=== PATIENT | female | born 1940 | race Caucasian/White ===

== ENCOUNTER → 2018-12-26 | Outpatient (REF) | payer MEDICARE ==
[~2018-12-26] MED LIST: ASPIRIN 8181 MG PO; AUGMENTIN875TAB PO; AZOPT1 % OP; AZOPT1 % OU; BL POTASSIUM99 MG PO; FLUARIX QUADRIV1 INJ IM; FLUTICASONE50 MCG; FOLIC ACID400 MC1 PO; LEVOTHYROXIN50 MC1 PO; LISINOP/HCTZ1 TA1 PO; LORATADINE D PO; LUMIGAN0.01 % OP; MULTI 501 PO; PREVNAR 13 IM; SYSTANE OP
[2018-12-26 11:25] LABS: HEMATOCRIT 46.3 % (37.0-47.0); HEMOGLOBIN 15.2 g/dl (12.0-16.0); IMMATURE GRANULOCYTES 0.4 % (0.0-5.0); MEAN CELL VOLUME 92.4 fL CALC (80.0-100.0); MEAN CORPUSCULAR HGB 30.3 pG CALC (26.0-32.0); MEAN CORPUSCULAR HGB CONC 32.8 g/L CALC (32.0-36.0); NEUT# 5.68 thou/uL (2.00-7.15); RED BLOOD COUNT 5.01 mill/uL (4.20-5.60); RED CELL DISTRI WIDTH 13.9 % (11.5-15.5)
[2018-12-26 12:27] LABS: ALBUMIN 4.4 g/dL (3.2-5.0); ALKALINE PHOSPHATASE 77 u/l (38-126); ANION GAP 15 (6-22 (CALC)); BILIRUBIN, TOTAL 0.6 mg/dL (0.0-1.4); BUN 16 mg/dL (8-23); BUN/CREATININE RATIO 23 (12-20 (CALC)); CALCULATED LDLCHOLESTEROL 91 mg/dL (62-129 (CALC)); CARBON DIOXIDE 27 mmol/l (22-30); CHLORIDE 100 mmol/l (95-108); CREATININE 0.7 mg/dL (0.5-1.0); GFR > 60 ML/MIN (>=60 (CALC)); GFR FOR AFR.AMER. > 60 ML/MIN (>=60 (CALC)); HDL CHOLESTEROL 62 mg/dL (>=40); POTASSIUM 4.4 mmol/l (3.5-5.1); SGOT/AST 23 u/l (9-36); SODIUM 138 mmol/l (137-146); TOTAL CHOLESTEROL 187 mg/dl (0-199); TRIGLYCERIDES REFLEX TO dLDL 171 mg/dl (30-149); VLDL CHOLESTROL 34 mg/dl (0-48 (CALC))
[2018-12-26 12:57] LABS: TSH, 3RD GENERATION 2.48 uIU/mL (0.47 - 4.68)
== END | disposition home or self-care (01) ==
LOC: LAB 10:01
PROVIDERS: ATTEND Internal Medicine Geriatric Medicine
DX: E03.9 Hypothyroidism, unspecified (principal); I10 Essential (primary) hypertension

== ENCOUNTER 2020-05-19 10:46 | Inpatient (IN) | payer MEDICARE ==
[~2020-05-19] VITALS: Ht 165.1 cm; Wt 73.0 kg
--- NOTE | 2020-05-19 10:58 | NUR ---
PT TO ROOM VIA OWN WHEELCHAIR FOR BEDSIDE TRIAGE.
--- NOTE | 2020-05-19 11:30 | NUR ---
PATIENT MEDICATED FOR 6/10 DUFFUSE PAIN TO ABD. ABD DISTENDED, TENDER TO PALPATION. BS HYPOACTIVE. PATIENT AND HUSABDN UPDATED ON PLAN OF CARE AND WAIT TIME. CALL FERNANDEZ WITHIN REACH.
--- NOTE | 2020-05-19 12:00 | NUR ---
PATIENT NOT TOLERATING PURE WICK. STRAIGHT CATH URINE SAMPLE OBTAINED, BLADDER EMPTIED, 450 MLS OF TRINITY COLORED URINE.
[2020-05-19 12:08] LABS: HEMATOCRIT 47.1 % (37.0-47.0); HEMOGLOBIN 15.3 g/dl (12.0-16.0); IMMATURE GRANULOCYTES 2.4 % (0.0-5.0); MEAN CELL VOLUME 89.2 fL CALC (80.0-100.0); MEAN CORPUSCULAR HGB CONC 32.5 g/dL CAL (32.0-36.0); NEUT# 20.42 thou/uL (2.00-7.15); RED BLOOD COUNT 5.28 mill/uL (4.20-5.60); RED CELL DISTRI WIDTH 13.8 % (11.5-15.5)
[2020-05-19 12:15] LABS: ALBUMIN 3.8 g/dL (3.2-5.0); AMYLASE 70 u/l (30-110); BUN 67 mg/dL (8-23); BUN/CREATININE RATIO 42 (12-20 (CALC)); CREATININE 1.6 mg/dL (0.5-1.0); GFR 31 ML/MIN (>=60 (CALC)); GFR FOR AFR.AMER. 38 ML/MIN (>=60 (CALC)); LIPASE 36 u/l (23-300); POTASSIUM 3.7 mmol/l (3.5-5.1); TOTAL PROTEIN 7.6 g/dL (6.3-8.2)
[2020-05-19 12:19] LABS: ALKALINE PHOSPHATASE 147 u/l (38-126); ANION GAP 20 (6-22 (CALC)); BILIRUBIN, TOTAL 1.3 mg/dL (0.0-1.4); CARBON DIOXIDE 22 mmol/l (22-30); CHLORIDE 87 mmol/l (95-108); SGOT/AST 68 u/l (9-36); SODIUM 125 mmol/l (137-146)
--- NOTE | 2020-05-19 12:30 | NUR ---
PATIENT UNABLE TO RECONCILE MEDICATIONS AT THIS TIME. WILL BE CONTACTING PHYSICIAN TO SEND LIST.
[2020-05-19 12:49] LABS: URINE BILIRUBIN - DIPSTICK NEGATIVE (NEGATIVE); URINE BLOOD DIPSTICK NEGATIVE (NEGATIVE); URINE COLOR YELLOW; URINE GLUCOSE - DIPSTICK NEGATIVE (NEGATIVE); URINE KETONE TRACE mg/dL (NEGATIVE); URINE LEUK ESTERASE NEGATIVE (NEGATIVE); URINE NITRITE - DIPSTICK NEGATIVE (Negative); URINE PH 5.5 (4.5-8.0); URINE PROTEIN - DIPSTICK NEGATIVE (NEG-TRACE); URINE SPECIFIC GRAVITY <=1.005; URINE UROBILINOGEN - DIPSTICK 0.2 E.U./dL (0.2)
--- NOTE | 2020-05-19 13:15 | NUR ---
IV ABX INFUSING WITH NO DIFFICULTY. PT REPORTS ABD PAIN IS 2/10. CALL FERNANDEZ WITHIN REACH.
[2020-05-19] MEDS ORDERED: ASPIRIN ADULT L81 M2 PO (13:42)
[2020-05-19] MEDS ORDERED: LEVOTHYROXIN50 MCG PO (13:42)
[2020-05-19] MEDS ORDERED: MULTI VIT PO (13:42)
[2020-05-19] MEDS ORDERED: LISINOP/HCTZ1 TA1 PO (13:43)
[2020-05-19] MEDS ORDERED: LORATADINE10 M1 PO (13:45)
[2020-05-19] MEDS ORDERED: VITAMIN D320 MCG PO (13:46)
[2020-05-19] MEDS ORDERED: DORZOLAMIDE HCL2 % OU (13:47)
[2020-05-19] MEDS ORDERED: VYZULTA0.024 % OU (13:47)
--- NOTE | 2020-05-19 13:48 | NUR ---
PATIENTS REQUESTING MORE IV FLUIDS DUE TO HER EXTREME DEHYDRATION. AWARE THAT NO OTHER MEDICATIONS ARE ORDERED AT THIS TIME. CALL FERNANDEZ WITHIN REACH.
[2020-05-19 13:54] LABS: ACT PARTIAL THROMBO TIME 28.1 SECONDS (20.0-32.5); PROTHROMBIN TIME 10.1 SECONDS (9.0-12.5)
--- NOTE | 2020-05-19 14:45 | NUR ---
PATIENT RESTING IN STRETCHER AND REPOSITIONED FOR COMFORT.
--- NOTE | 2020-05-19 15:15 | NUR ---
PATIENT ASSISTED ON BED PAIN.
--- NOTE | 2020-05-19 16:25 | NUR ---
DR RAMOS AT BEDSIDE.
--- NOTE | 2020-05-19 16:29 | NUR ---
EMILIA BAEZ AT BEDSIDE.
--- NOTE | 2020-05-19 17:00 | NUR ---
PATIENT RESTING IN STRETCHER IN NAD. PT AND UPDATED ON PLAN OF CARE AND WAIT TIME. CALL FERNANDEZ WITHIN REACH.
--- NOTE | 2020-05-19 18:00 | NUR ---
PATIENT RESGIN IN STRETCHER. VSS. CALL FERNANDEZ WITHIN REACH.
--- NOTE | 2020-05-19 18:15 | NUR ---
REPORT CALLED TO OLIVE CRAVEN.
--- NOTE | 2020-05-19 18:34 | NUR ---
Admission Note Report Given to: OLIVE CRAVEN Transported by: Wheelchair X Stretcher Transported with: X Nurse Transporter X Patent IV O2 X Wheel Press Clerk Location: ICU X MS2 PATIENT TO ROOM 273 IN STABLE CONDITION. CARE RELINQUISHED TO OLIVE CRAVEN.
[2020-05-19 18:50] VITALS: BP 140/58
--- NOTE | 2020-05-19 19:25 | NUR ---
RECEIVED REPORT FROM OLIVE CRAVEN. PT. ARRIVED TO THE FLOOR @1836. PT. IS RESTING IN BED WITH AT BEDSIDE. IS ADDEMANT THAT PT. WILL ONLY TAKE HER OWN EYE GTTS AND NOT ONES PROVIDED BY HOSPITAL STAFF. EYE GTTS LEFT AT BEDSIDE TO ADMINISTER HERSELF SHE NORMALLY DOES AT HOME. PT. AND INSTRUCTED THAT WHEN PHARMACY GETS HERE TOMORROW THEY WILL NEED TO LABEL SO WE CAN SCAN THEM TO GIVE. PT. C/O LLQ ABD PAIN THAT WILL INTERMITTENTLY CROSS OVER TO THE RLQ AND BACK WELL; DENIES NEEDS FOR PAIN MEDS AT THIS TIME. ORIENTED TO CALL LIGHT, ROOM, AND POC; VERBALIZES UNDERSTANDING. CALLED LINING SCRUBBER FOR ZOSYN WE DO NOT HAVE IT IN OUR [facility]. PT. IS INSTRUCTED TO CALL FOR ALL OOB NEEDS. CALL LIGHT IS IN REACH.
--- NOTE | 2020-05-19 20:23 | NUR ---
PT ARRIVED TO THE FLOOR IN STRETCHER WITH AT SIDE. TRANSFERRED TO BED AND HOB ELEVATED WITH NO DISTRESS NOTED.
[2020-05-19 23:30] VITALS: BP 126/50
--- NOTE | 2020-05-19 23:44 | NUR ---
PT. ASSSISTED UP TO BSC AND BACK INTO BED. URINE STRAINED. CALL LIGHT IS IN REACH.
--- NOTE | 2020-05-19 23:49 | NUR ---
PT. REPORTS LOWER ABD PAIN AND BACK PAIN /10; MEDICATED WITH ORDERED PRN MORPHINE WILL REASSESS.
--- NOTE | 2020-05-20 02:30 | NUR ---
PT. PROVIDED WITH MOUTHSWABS FOR DRYNESS; DENIES NEEDS. CALL LIGHT IS IN REACH.
[2020-05-20 03:30] VITALS: BP 120/49
[2020-05-20 05:56] LABS: MEAN CELL VOLUME 89.2 fL CALC (80.0-100.0); MEAN CORPUSCULAR HGB 28.8 pG CALC (26.0-32.0); MEAN CORPUSCULAR HGB CONC 32.3 g/dL CAL (32.0-36.0); RED BLOOD COUNT 4.24 mill/uL (4.20-5.60); RED CELL DISTRI WIDTH 13.6 % (11.5-15.5)
--- NOTE | 2020-05-20 06:00 | NUR ---
PT. ASSISTED ON AND OFF OF BSC AND BACK INTO BED. ASSISTED TO REPOSITION IN BED. DENIES NEEDS. CALL LIGHT IS IN REACH.
[2020-05-20 06:06] LABS: HEMATOCRIT 37.8 % (37.0-47.0); HEMOGLOBIN 12.2 g/dl (12.0-16.0)
[2020-05-20 06:10] LABS: CREATININE 1.4 mg/dL (0.5-1.0); MAGNESIUM 2.5 mg/dL (1.6-2.3); POTASSIUM 3.1 mmol/l (3.5-5.1)
[2020-05-20 12:00] VITALS: BP 135/66
--- NOTE | 2020-05-20 15:10 | NUR ---
PT IS ALERT AND ORIENTED AND ABLE TO MAKE NEEDS KNOWN. SKIN WARM TO TOUCH. MEDICATIONS GIVEN AND TOLERATED WELL. PT HAS CT SCAN WITH CONTRAST DONE THIS AM. TOLERATED CONTRAST WELL. RESPIRATION ARE EVEN AND NON LABORED. NO COUGH OR CONGESTION NOTED. COMPLAINED OF SPASMLIKE PAIN IN RIGHT UPPER AND RIGHT LOWER EXTREMITY. ASKED PT IF SHE WANTED TO BE MEDICATED FOR PAIN AND SHE STATED "NO" AT BEDSIDE. FLUID AMY FAIR. MEALS ENCOURAGED. NS RUNNING AT 50ML/HR AND TOLERATING WELL. CALL LIGHT WITHIN REACH. LOOSE STOOLS NOTED THIS AM/AFTERNOON. ASSISTED TO BSC X 1 ASSIST. cALL LIGHT WITHIN REACH AND BED IN LOWEST POSITION. WILL CONTINUE TO OBSERVE.
[2020-05-20 17:05] VITALS: BP 110/57
[2020-05-20 19:28] VITALS: BP 127/76
--- NOTE | 2020-05-20 19:56 | NUR ---
PT. RESTING IN BED WITH NO RESP. DISTRESS NOTED. DENIES NEEDS AND VOICES NO COMPLAINTS. SCHED MED GIVEN. UPDATED ON POC. IV SITE PATENT AND ORDERED IVF INFUSING WELL. ENCOURAGED TO CALL FOR ANY NEEDS.
--- NOTE | 2020-05-20 22:20 | NUR ---
PT. ASSISTED TO GET COMFORTABLE IN BED; DENIES NEEDS FOR PAIN MEDICATION OR SLEEPING AIDE. ENCOURAGED TO CALL FOR ANY NEEDS. CALL LIGHT IS IN REACH.
[2020-05-20 23:47] VITALS: BP 125/49
--- NOTE | 2020-05-20 23:50 | NUR ---
VSS; NO DISTRESS NOTED; DENIES NEEDS. REPORTS SLIGHT PAIN TO ABDOMEN, BUT DENIES NEEDS FOR PAIN MEDS. REMOVED CAITLIN CHIN PER PT'S REQUEST. CALL LIGHT IS IN REACH.
[2020-05-21] VITALS: BP 125/73
[2020-05-21 04:36] VITALS: BP 128/65
--- NOTE | 2020-05-21 04:38 | NUR ---
PT. RESTING IN BED WITH NO DISTRESS NOTED; DENIES NEEDS. REPOSITIONED IN BED. CALL LIGHT IS IN REACH. WILL CONTINUE TO MONITOR. VSS.
[2020-05-21 05:35] LABS: HEMATOCRIT 38.6 % (37.0-47.0); HEMOGLOBIN 12.3 g/dl (12.0-16.0); MEAN CELL VOLUME 90.6 fL CALC (80.0-100.0); MEAN CORPUSCULAR HGB 28.9 pG CALC (26.0-32.0); MEAN CORPUSCULAR HGB CONC 31.9 g/dL CAL (32.0-36.0); RED BLOOD COUNT 4.26 mill/uL (4.20-5.60); RED CELL DISTRI WIDTH 14.1 % (11.5-15.5)
[2020-05-21 05:58] LABS: CREATININE 1.2 mg/dL (0.5-1.0); MAGNESIUM 2.5 mg/dL (1.6-2.3); POTASSIUM 3.1 mmol/l (3.5-5.1)
[2020-05-21 08:00] VITALS: BP 126/68
--- NOTE | 2020-05-21 08:00 | NUR ---
PT SEEN ALERT AND ORIENTED X 3. PT WITH ASSIST PROVIDED TO BSC. LUNGS CLEAR, RA. NO COMPLAINT OF ABDOMIMAL PAIN OR OTHERWISE. HAS ARRIVED TO ROOM.
[2020-05-21 10:40] VITALS: BP 112/41
--- NOTE | 2020-05-21 12:00 | NUR ---
PT AT BEDSIDE, ASSISTS POSSIBLE. PT UP TO BSC NEEDED WITH ASSIST, SEEN WEAK. NO DISTRESS, NO ACUTE PAIN NOTED.
[2020-05-21 14:40] VITALS: BP 114/44
--- NOTE | 2020-05-21 16:41 | NUR ---
PT WITHOUT CHANGE IN CONDITION, RESTS IN THE BED IN NO ACUTE DISTRESS.
[2020-05-21 19:36] VITALS: BP 124/60
--- NOTE | 2020-05-21 20:34 | NUR ---
PT MEDICATED ORDERS PROVIDE. ASSESSMENT COMPLETED, PT REPORTS MILD TENDERNESS TO ABD, NOT PALPATED DUE TO REPORTED ABCESS. POC DISCUSSED, LUNG SOUNDS ARE CLEAR, TRACE EDEMA BLE. PT ASSISTED TO BSC AND BACK TO BED, STANDBY 1X ASSISTANCE NEEDED. MOD AMOUNT OF LIGHT BROWN LOOSE STOOL EMPTIED FROM BSC. PT DENIES PAIN AT THIS TIME. WILL CONTINUE TO MONITOR.
[2020-05-22 00:17] VITALS: BP 134/66
--- NOTE | 2020-05-22 00:55 | NUR ---
PT MEDICATED FOR PAIN GENERALIZED. IV ANTIBIOTIC THERAPY ADMINISTERED AT THIS TIME.
[2020-05-22 04:42] VITALS: BP 120/63
--- NOTE | 2020-05-22 05:45 | NUR ---
PT MEDICATED ORDERS PROVIDE. IV THERAPY ADMINISTERED AT THIS TIME. PT DENIES ANY PAIN OR NEEDS AT THIS TIME.
[2020-05-22 05:47] LABS: HEMATOCRIT 37.5 % (37.0-47.0); MEAN CELL VOLUME 90.6 fL CALC (80.0-100.0); RED BLOOD COUNT 4.14 mill/uL (4.20-5.60); RED CELL DISTRI WIDTH 14.3 % (11.5-15.5)
[2020-05-22 06:05] LABS: CREATININE 1.1 mg/dL (0.5-1.0); POTASSIUM 3.6 mmol/l (3.5-5.1)
--- NOTE | 2020-05-22 08:06 | NUR ---
PT ASSESSMENT AND VITALS COMPLETE ALERT AND ORIENTED X 3. PT WITH ASSIST PROVIDED TO BSC. LUNGS CLEAR, RA. NO COMPLAINT OF ABDOMIMAL PAIN OR OTHERWISE. HAS ARRIVED TO ROOM. PT ENCOURAGED TO VERBALIZE NEEDS. CALL FERNANDEZ WITHIN REACH.
[2020-05-22 08:07] VITALS: BP 121/59
--- NOTE | 2020-05-22 08:30 | NUR ---
TELE DISCONTINUED PER PHYSICIANS ORDERS.
[2020-05-22 10:30] VITALS: BP 118/65
--- NOTE | 2020-05-22 10:30 | NUR ---
PT SENT TO RADIOLOGY BY WHEELCHAIR FOR INSERTION OF PICC LINE FOR FUTURE OUTPATIENT THERAPY.
--- NOTE | 2020-05-22 12:00 | NUR ---
PT. RESTING IN BED WITH NO RESP. DISTRESS NOTED. DENIES NEEDS AND VOICES NO COMPLAINTS. SCHED MED GIVEN. UPDATED ON POC. NEW PICC LINE SITE PATENT AND ORDERED IVF INFUSING WELL. ENCOURAGED TO CALL FOR ANY NEEDS.
--- NOTE | 2020-05-22 14:07 | NUR ---
PTS IV (LEFT FOREARM) REMOVED. CATH INTACT. PTS IV SITE APPEARS HEALTHY WITH NOREDDNESS OR SWELLING.
--- NOTE | 2020-05-22 14:09 | NUR ---
Discharge instructions given. Patient verbalizes understanding of same. Discharged in stable condition via Wheelchair to Home with spouse. All belongings sent with pt.
== END 2020-05-22 14:05 | disposition home or self-care (01) | DRG 392 ==
LOC: ED 10:46 → ED-I 14:03 → ED 14:15 → ED-I 14:16 → MS2 18:07
PROVIDERS: Nurse Practitioner; ADMIT Internal Medicine; ATTEND Internal Medicine
PROC: 02HV33Z Insertion of Infusion Device into Superior Vena Cava, Percutaneous Approach (ICD-10-PCS; principal; 2020-05-22)
PROC: B518ZZA Fluoroscopy of Superior Vena Cava, Guidance (ICD-10-PCS; 2020-05-22)
DX: K57.20 Diverticulitis of large intestine with perforation and abscess without bleeding (principal); E87.1 Hypo-osmolality and hyponatremia; I10 Essential (primary) hypertension; E03.9 Hypothyroidism, unspecified; H40.9 Unspecified glaucoma; E86.0 Dehydration; N28.9 Disorder of kidney and ureter, unspecified; K80.20 Calculus of gallbladder without cholecystitis without obstruction; E87.6 Hypokalemia; Z20.828 Contact with and (suspected) exposure to other viral communicable diseases
CPT/HCPCS: J1335; J1650; Q9967